=== PATIENT | male | born 1950 | race Caucasian/White ===

== ENCOUNTER 2019-05-19 13:33 | Outpatient (CLI) | payer MEDICARE, OTHER ==
[2019-05-19] MEDS ORDERED: Magnevist 469MG/ML 20 ML VIAL ONE (13:45)
--- NOTE | 2019-05-19 15:50 | MRI ---
MULTI PARAMETRIC MRI OF THE PELVIS (PROSTATE) WITH AND WITHOUT IV CONTRAST WITH REVIEW ON INDEPENDENT 3-D WORKSTATION: HISTORY: Prostate cancer. Biopsy done in 2014 COMPARISON: 11/04/2015 FINDINGS: PROSTATE: The prostate gland measures 5 x 4 x 4 cm with a volume of 42 cc. PERIPHERAL ZONE: No focal abnormal areas of restricted diffusion is seen to suggest malignant process . TRANSITIONAL ZONE: No lentiform area of abnormally decreased T2 signal is seen to suggest a malignant process. No focal arterial enhancing mass is seen. Prostatic capsule is intact. The seminal vesicles are intact. LYMPH NODES: No lymphadenopathy is seen. SOFT TISSUES: Pelvic sidewall is normal. There is colonic diverticulosis. BONES: No abnormal areas of signal replacement on the T1-weighted sequences are seen to suggest osseo us metastatic disease. IMPRESSION: PI-RADS 2: Low (clinically significant prostate cancer is unlikely to be present). This exam was interpreted in consultation with Dr. Lenin Islas who concurs.
== END 2019-05-19 13:34 | disposition home or self-care (01) ==
LOC: TBSIIMAG 13:33
PROVIDERS: ATTEND Urology
DX: C61 Malignant neoplasm of prostate (principal)
CPT/HCPCS: 72197; 82565; A9579

== ENCOUNTER 2024-11-10 07:25 | Outpatient (CLI) | payer MEDICARE, OTHER ==
[2024-11-10 08:35] LABS: Estimated GFR - POC 57.0
== END 2024-11-10 07:26 | disposition home or self-care (01) ==
LOC: SCSMRI 07:25
PROVIDERS: ATTEND Urology
DX: C61 Malignant neoplasm of prostate (principal)
CPT/HCPCS: 36415; 72197; 82565 ×2; A9577